=== PATIENT | female | born 1975 | race Caucasian/White ===

== ENCOUNTER 2024-09-01 12:42 | Outpatient (CLI) | payer OTHER | END 2024-09-01 12:43 | disposition home or self-care (01) | LOC: CSHCT 12:42 | PROVIDERS: ATTEND Psychiatry & Neurology Neurology | DX: G40.909 Epilepsy, unspecified, not intractable, without status epilepticus (principal) | CPT/HCPCS: 70450 ==

== ENCOUNTER 2025-08-25 09:46 | Outpatient (CLI) | payer BC, OTHER | END 2025-08-25 09:47 | disposition home or self-care (01) | LOC: CSHMAMMO 09:46 | PROVIDERS: ATTEND Physician Assistant | DX: Z12.31 Encounter for screening mammogram for malignant neoplasm of breast (principal) | CPT/HCPCS: 77063; 77067 ==